=== PATIENT | female | born 1960 | race Caucasian/White ===

== ENCOUNTER 2020-12-22 09:17 | Inpatient (IN) ==
[2020-12-22 09:57] LABS: ABS Lymphocytes 0.5 10^3/ul (1.0-4.8); ABS Monocytes 0.3 10^3/ul (0-0.8); ABS Neutrophils 9.7 10^3/ul (1.5-7.7); Hematocrit 36 % (35-47); Hemoglobin 12.3 g/dL (12.0-16.0); Lymphocyte % 4.5 %; Mean Corpuscular HGB Conc 34 g/dL (31-36); Mean Corpuscular Hemoglobin 29 pg (27-31); Mean Corpuscular Volume 85 fL (80-97); Mean Platelet Volume 6.1 fL (7.4-10.4); Platelet Count 352 10^3/uL (150-450); Red Blood Count 4.27 10^6 /uL (3.70-4.87); Red Cell Distribution Width 17 % (10-15); White Blood Count 10.5 10^3/uL (3.5-10.8)
[2020-12-22] MEDS ORDERED: Iodixanol (CONTRAST) 320 MG/ML 100 ML SDV IV ONE (09:58)
[2020-12-22 10:06] LABS: Activated Partial Thrombo Time 32.1 seconds (26.0-38.0); INR 1.01 (0.86-1.15)
[2020-12-22 10:13] LABS: Troponin I 0.01 ng/mL (<0.03)
[2020-12-22 10:15] LABS: Albumin 4.2 g/dL (3.2-5.2); Albumin/Globulin Ratio 1.4 (1-3); Calcium 9.4 mg/dL (8.6-10.3); HDL Cholesterol 74.9 mg/dL; Potassium 3.9 mmol/L (3.5-5.0); Total Bilirubin 0.5 mg/dL (0.2-1.0); Total Protein 7.2 g/dL (6.4-8.9)
[2020-12-22 11:44] LABS: Rapid COVID-19 Molecular Undetected (Undetected)
[2020-12-22] MEDS ORDERED: cefTRIAXone 1 gm/50 mL NS BAG 1 GM/50 ML BAG IV ONE (11:49)
[2020-12-22] MEDS ORDERED: Azithromycin 500 mg/250 ml NS 500 MG/250 ML BAG IVPB ONE (11:49)
[2020-12-22 14:36] LABS: Urine Appearance Clear; Urine Bacteria Absent (Absent); Urine Bilirubin Negative (Negative); Urine Blood 1+ (Negative); Urine Color Yellow; Urine Glucose Negative (Negative); Urine Ketones Negative (Negative); Urine Nitrite Negative (Negative); Urine Protein 1+(30 mg/dL) (Negative); Urine Red Blood Cell 1+(3-5/hpf) (Absent); Urine Urobilinogen Negative (Negative); Urine White Blood Cell Absent (Absent)
[2020-12-22 14:41] LABS: Urine Specific Gravity > 1.060 (1.002-1.030)
[2020-12-22 17:47] LABS: C Reactive Protein 16.22 mg/L (<8.01)
[2020-12-22] MEDS ORDERED: Albuterol HFA INHALER 8 gm MDI INH PRN (17:49)
[2020-12-22] MEDS: Enoxaparin 40 MG/0.4 ML SYR SUBCUT SCH (18:23)
[2020-12-22] MEDS: Mometasone/Formoter 100/5 MDI INH SCH (20:01)
[2020-12-22] MEDS ORDERED: [UNRECOGNIZED DRUG - OTHER] PO SCH (21:00)
[2020-12-22] MEDS: CMCS: Clobazam 10 mg TAB (NF) 10 MG TAB PO SCH (21:36)
[2020-12-22] MEDS ORDERED: [UNRECOGNIZED DRUG - OTHER] PO ONE (22:00)
[2020-12-23 00:49] LABS: Influenza A Molecular Negative (Negative); Influenza B Molecular Negative (Negative)
[2020-12-23 06:42] LABS: ABS Basophils 0.1 10^3/ul (0-0.2); ABS Eosinophils 0.1 10^3/ul (0-0.6); ABS Lymphocytes 1.8 10^3/ul (1.0-4.8); ABS Monocytes 0.5 10^3/ul (0-0.8); ABS Neutrophils 8.5 10^3/ul (1.5-7.7); Eosinophil % 0.5 %; Hematocrit 31 % (35-47); Hemoglobin 10.2 g/dL (12.0-16.0); Lymphocyte % 16.1 %; Mean Corpuscular HGB Conc 33 g/dL (31-36); Mean Corpuscular Hemoglobin 29 pg (27-31); Mean Corpuscular Volume 87 fL (80-97); Mean Platelet Volume 6.9 fL (7.4-10.4); Platelet Count 255 10^3/uL (150-450); Red Blood Count 3.52 10^6 /uL (3.70-4.87); Red Cell Distribution Width 17 % (10-15); White Blood Count 10.9 10^3/uL (3.5-10.8)
[2020-12-23 07:02] LABS: Anion Gap 5 mmol/L (2-11); Blood Urea Nitrogen 24 mg/dL (6-24); CO2 Carbon Dioxide 26 mmol/L (22-32); Calcium 8.8 mg/dL (8.6-10.3); Chloride 106 mmol/L (101-111); Glucose 93 mg/dL (70-100); Magnesium 1.9 mg/dL (1.9-2.7); Potassium 4.1 mmol/L (3.5-5.0); Sodium 137 mmol/L (135-145)
[2020-12-23] MEDS: Mometasone/Formoter 100/5 MDI INH SCH ×2 (07:46→20:19)
[2020-12-23] MEDS: Potassium Chlor 10 meq TAB PO SCH (09:13)
[2020-12-23 09:43] LABS: Folate > 20.00 ng/mL (5.90-24.80)
[2020-12-23 09:44] LABS: Vitamin B12 379 pg/mL (180-914)
[2020-12-23] MEDS ORDERED: cefTRIAXone 1 gm/50 mL NS BAG 1 GM/50 ML BAG IVPB SCH (12:00)
[2020-12-23 14:53] LABS: Ferritin 79.4 ng/mL (11-307)
[2020-12-23] MEDS: Enoxaparin 40 MG/0.4 ML SYR SUBCUT SCH (16:53)
[2020-12-23] MEDS: [UNRECOGNIZED DRUG - OTHER] PO SCH ×2 (17:03→20:59)
[2020-12-23] MEDS ORDERED: Iohexol 350 (CONTRAST) 500 ML MDV IV ONE (17:53)
[2020-12-23] MEDS: CMCS: Clobazam 10 mg TAB (NF) 10 MG TAB PO SCH (21:00)
[2020-12-24] MEDS: Mometasone/Formoter 100/5 MDI INH SCH ×2 (07:33→10:49)
[2020-12-24 07:37] LABS: Hematocrit 29 % (35-47); Hemoglobin 9.7 g/dL (12.0-16.0); Mean Corpuscular HGB Conc 34 g/dL (31-36); Mean Corpuscular Hemoglobin 29 pg (27-31); Mean Corpuscular Volume 86 fL (80-97); Mean Platelet Volume 7.5 fL (7.4-10.4); Platelet Count 185 10^3/uL (150-450); Red Blood Count 3.31 10^6 /uL (3.70-4.87); Red Cell Distribution Width 18 % (10-15); White Blood Count 8.8 10^3/uL (3.5-10.8)
[2020-12-24 07:49] LABS: Calcium 8.6 mg/dL (8.6-10.3); Potassium 3.8 mmol/L (3.5-5.0)
[2020-12-24] MEDS: Potassium Chlor 10 meq TAB PO SCH (10:16)
[2020-12-24 15:40] VITALS: BP 127/59
== END 2020-12-24 16:20 | disposition home or self-care (01) | DRG 139 ==
LOC: ED 09:17 → EDHOLD 14:19 → SUATTDRO 14:19 → MED 14:56
PROVIDERS: ADMIT Internal Medicine; ATTEND Internal Medicine